=== PATIENT | male | born 1985 | race American Indian/Alaskan Native ===

== ENCOUNTER 2017-05-13 12:57 | Emergency (ER) | payer SELFPAY ==
[2017-05-13] MEDS ORDERED: VANCOMYCIN/NS 1 GM/250 ML 1 GM/250 ML BAG IV ONE (17:01)
--- NOTE | 2017-05-13 17:16 | Emergency Department Report ---
HPI - General Chief Complaint: Eye Problems Time Seen by Provider: 05/13/17 17:00 - HPI HPI: This is a 32-year-old [place] male presents to the emergency department from home with complaint of some swelling around the eyes, some irritation to the eyelids and some irritation to the eyes themselves as well as some redness has been going on since 2 nights ago. The patient says that he wiped his eyes with a T-shirt he was wearing and then went to bed underneath a new air-conditioning unit and woke up with these symptoms. They have been getting slightly worse since. He denies any actual vision change. There is some slight discharge from the corner of the bilateral eyes. He denies any fever but presents with a low-grade fever. He denies any past medical history other than asthma. He does not have a primary care physician. No recent travel or sick contacts at home. ED Past Medical Hx - Past Medical History Previous Medical History?: Yes Hx Asthma: Yes - Surgical History Past Surgical History?: No - Social History Smoking Status: Never Smoker Substance Use Type: None - Medications Home Medications: Home Medications Medication Instructions Recorded Confirmed Last Taken Type Cephalexin [Keflex] 1,000 mg PO Q12HR #28 cap 05/13/17 Unknown Rx Tobramycin 0.3% [Tobrex] 1 drop OU Q8HR #1 bottle 05/13/17 Unknown Rx predniSONE [Deltasone] 20 mg PO QDAY #2 tab 05/13/17 Unknown Rx ED Review of Systems ROS: Stated complaint: ALLERGIC REACTION Other details as noted in HPI Comment: All other systems reviewed and negative Constitutional: denies: chills, fever Eyes: eye pain, eye discharge ENT: denies: ear pain, throat pain Respiratory: denies: cough, shortness of breath, wheezing Cardiovascular: edema (periorbital). denies: chest pain, palpitations Gastrointestinal: denies: abdominal pain, nausea, diarrhea Genitourinary: denies: urgency, dysuria Musculoskeletal: denies: back pain, joint swelling, arthralgia Skin: change in color. denies: lesions Neurological: denies: headache, weakness, paresthesias Physical Exam - Physical Exam Vital Signs: Vital Signs 05/13/17 14:57 Temperature 100.0 F H Pulse Rate 76 Respiratory 16 Rate Blood Pressure 147/92 O2 Sat by Pulse 100 Oximetry Physical Exam: GENERAL: The patient is well-developed well-nourished. HENT: Normocephalic. Atraumatic. Patient has moist mucous membranes. EYES: Extraocular motions are intact. Pupils equal reactive to light bilaterally. There is some slight injection to the bilateral conjunctiva. The patient has swelling and erythema to the bilateral upper and lower eyelids, worse on the right side and worse with the upper eyelid compared to the lower. He is able to open the eyelids and expose the eyes. Mild discharge seen to the bilateral medial canthi. Visual acuity: 20/40 to both eyes, OD and OS NECK: Supple. Trachea is midline. CHEST/LUNGS: Clear to auscultation. There is no respiratory distress noted. HEART/CARDIOVASCULAR: Regular. There is no tachycardia. There is no gallop rub or murmur. ABDOMEN: Abdomen is soft, nontender. Patient has normal bowel sounds. There is no abdominal distention. SKIN: The patient has swelling and erythema to the bilateral upper and lower eyelids, worse on the right side and worse with the upper eyelid compared to the lower. NEURO: The patient is awake, alert, and oriented. The patient is cooperative. The patient has no focal neurologic deficits. The patient has normal speech. MUSCULOSKELETAL: There is no tenderness or deformity. There is no limitation range of motion. There is no evidence of acute injury. ED Course Vital Signs 05/13/17 14:57 Temperature 100.0 F H Pulse Rate 76 Respiratory 16 Rate Blood Pressure 147/92 O2 Sat by Pulse 100 Oximetry ED Medical Decision Making - Lab Data Result diagrams: 05/13/17 17:19 05/13/17 17:19 - Radiology Data Radiology results: report reviewed EXAM: CT FACIAL BONES W CON HISTORY: Facial swelling and cellulitis, r/o orbital cellul TECHNIQUE: CT of the face with intravenous contrast PRIORS: None. FINDINGS: There is right periorbital soft tissue swelling. No intraorbital mass identified. No evidence for inflammatory change within the orbital fat. The optic globes are intact. No focal abscess collection is identified There is minimal mucosal thickening within the inferior maxillary sinuses.. No fluid levels observed. No bony destructive changes are identified. IMPRESSION: Right periorbital soft tissue swelling. No postseptal abnormality identified Minimal mucosal thickening within the maxillary sinuses. Transcribed By: NICK Dictated By: PRABHU VALDIVIA MD Electronically Authenticated By: PRABHU VALDIVIA MD Signed Date/Time: 05/13/17 1521 - Medical Decision Making 32-year-old male presents to the emergency department with complaint of some swelling and irritation to the eyelids and to the eyes themselves for the past day or so. Part of this story is that he wiped his face with a T-shirt and may have had a reaction and another story is that he was sleeping underneath an air conditioning vent and may have had a reaction to something was blowing on his face. There is some swelling and it could be consistent with an allergic reaction but there is also some erythema and warmth concerning for a cellulitis. The patient did not have any leukocytosis but he did have a low- grade fever. A CT of the face with IV contrast was done to rule out orbital or post-septal cellulitis and there was none. He was given IV antibiotics here. The patient appears safe for discharge home at this time. He will go on antibiotics both oral and eyedrop. He was given only a 2 day course of some prednisone to treat a possible allergic reaction and will use Benadryl as needed. He was given referrals for primary care and ophthalmology. He will return to the ER with any worsening of symptoms or any acute distress. Critical care attestation.: If time is entered above; I have spent that time in minutes in the direct care of this critically ill patient, excluding procedure time. ED Disposition Clinical Impression: Periorbital cellulitis Qualifiers: Laterality: unspecified laterality Qualified Code(s): L03.213 - Periorbital cellulitis Allergic reaction Qualifiers: Encounter type: initial encounter Qualified Code(s): T78.40XA - Allergy, unspecified, initial encounter Disposition: DC-01 TO HOME OR SELFCARE Is pt being admited?: No Condition: Stable Instructions: Conjunctivitis (ED), Periorbital Cellulitis in Children (ED) Additional Instructions: Please follow up with a primary care physician. I also have given you a referral for some ophthalmologists. Take the antibiotics as prescribed. Return to the emergency Department with any worsening of her symptoms, any blurry vision, or any acute distress. He can take Tylenol every 4 hours and ibuprofen every 6 hours, using weight-based dosing, as needed for fever. Prescriptions: Cephalexin [Keflex] 1,000 mg PO Q12HR #28 cap predniSONE [Deltasone] 20 mg PO QDAY #2 tab Tobramycin 0.3% [Tobrex] 1 drop OU Q8HR #1 bottle Referrals: PRIMARY CARE, [Primary Care Provider] - 3-5 Days YANCY NAVARRO MD [Staff Physician] - 3-5 Days ALVIN DIMAS MD [Staff Physician] - 3-5 Days [facility] [Outside] - 3-5 Days [facility] [Outside] - 3-5 Days Time of Disposition: 20:42
[2017-05-13 17:36] LABS: Basophils % (Auto) 2.7 % (0.0-1.8); Eosinophils % (Auto) 0.2 % (0.0-4.3); Hematocrit 44.3 % (35.5-45.6); Hemoglobin 14.4 gm/dl (11.8-15.2); Mean Corpuscular HGB Conc 33 % (32-34); Mean Corpuscular Hemoglobin 29 pg (28-32); Mean Corpuscular Volume 90 fl (84-94); Platelet Count 304 K/mm3 (140-440); Red Blood Count 4.93 M/mm3 (3.65-5.03); White Blood Count 9.6 K/mm3 (4.5-11.0)
[2017-05-13 17:49] LABS: BUN/Creatinine Ratio 12.22; Blood Urea Nitrogen 11 mg/dL (9-20); Carbon Dioxide 26 mmol/L (22-30); Glucose 92 mg/dL (75-100)
[2017-05-13 17:50] LABS: Anion Gap 16 mmol/L; Chloride 96.6 mmol/L (98-107); Sodium 135 mmol/L (137-145)
[2017-05-13] MEDS ORDERED: TYLENOL PO ONE (17:57)
[2017-05-13] MEDS ORDERED: NACL ONE (18:05)
--- NOTE | 2017-05-13 19:22 | Cat Scan Report ---
FINAL REPORT EXAM: CT FACIAL BONES W CON HISTORY: Facial swelling and cellulitis, r/o orbital cellul TECHNIQUE: CT of the face with intravenous contrast PRIORS: None. FINDINGS: There is right periorbital soft tissue swelling. No intraorbital mass identified. No evidence for inflammatory change within the orbital fat. The optic globes are intact. No focal abscess collection is identified There is minimal mucosal thickening within the inferior maxillary sinuses.. No fluid levels observed. No bony destructive changes are identified. IMPRESSION: Right periorbital soft tissue swelling. No postseptal abnormality identified Minimal mucosal thickening within the maxillary sinuses.
[2017-05-13 20:33] VITALS: BP 121/79
== END 2017-05-13 20:50 | disposition home or self-care (01) ==
LOC: ED 12:57
DX: L03.213 Periorbital cellulitis (principal); T78.40XA Allergy, unspecified, initial encounter; J45.909 Unspecified asthma, uncomplicated
CPT/HCPCS: 36415; 70487; 80048; 85025; 96365; 96366; 96375; 99284; J2930; J3370; Q9967